=== PATIENT | female | born 2000 | race Caucasian/White ===

== ENCOUNTER 2022-04-24 13:56 | Inpatient (IN) ==
[2022-04-24] MEDS ORDERED: LACTATED RINGERS 500 ML IV PRN (14:18)
[2022-04-24] MEDS ORDERED: LACTATED RINGERS 1,000 ML IV PRN (14:18)
[2022-04-24] MEDS ORDERED: CARBOPROST TROMETHAMINE 250 MCG/ML AMP IM PRN (14:18)
[2022-04-24] MEDS ORDERED: ONDANSETRON 4 MG/2 ML VIAL IV PRN (14:18)
[2022-04-24] MEDS ORDERED: METHYLERGONOVINE 0.2 MG/1 ML AMP IM PRN (14:18)
[2022-04-24] MEDS ORDERED: miSOPROStoL 200 MCG TABLET RECTAL PRN (14:18)
[2022-04-24] MEDS ORDERED: OXYTOCIN/LR 20 UNIT/1,000 ML BAG IV ONE ×2 (14:18→22:19)
[2022-04-24] MEDS ORDERED: TRANEXAMIC ACID 1,000 MG in SODIUM CHLORIDE 0.9% 100 ML IV PRN (14:18)
[2022-04-24 14:36] LABS: Basophils % 0.2 % (0.0-0.8); Eosinophils # 0.6 10*3/uL (0.0-0.87); Eosinophils % 4.6 % (0.00-10.9); Hematocrit 29.3 VOL% (35.7-47.0); Hemoglobin 9.5 GM/DL (12.0-16.0); Immature Granulocytes % 1.1 %; Immature Granulocytes Absolute 0.14 #; Lymphocytes # 1.7 10*3/uL (1.4-4.0); Lymphocytes % 13.2 % (21.3-54.2); Mean Corpuscular HGB Conc 32.4 GM/DL (32-36); Mean Corpuscular Volume 77.7 FL (87-102); Mean Platelet Volume 11.2 FL (9.6-12.0); Monocytes # 0.8 10*3/uL (0.11-0.8); Monocytes % 6.5 % (1.7-12.7); Neutrophils % 74.4 % (38.7-73.9); Platelet Count 276 T/CUMM (130-400); Red Blood Count 3.77 MC/CUMM (3.8-5.5); Red Cell Distribution Width 13.8 % (9.3-17.3); White Blood Count 12.9 T/CUMM (4-12)
[2022-04-24 14:59] LABS: Albumin 2.3 G/DL (3.4-5.0); Bilirubin,Total 0.4 MG/DL (0.20-1.00); Calcium 9.1 MG/DL (8.5-10.1); Osmolality,Calculated 271.8 MOS/KG (273-304); Potassium 3.4 MMOL/L (3.5-5.1); Total Protein 6.3 G/DL (6.4-8.2)
[2022-04-24] MEDS: OXYTOCIN/LR 20 UNIT/1,000 ML BAG IV SCH (22:22)
[2022-04-25] MEDS ORDERED: BUTORPHANOL 2 MG/ML VIAL IV PRN (00:07)
[2022-04-25] MEDS ORDERED: BUTORPHANOL 1 MG/ML VIAL IV PRN (00:07)
[2022-04-25] MEDS ORDERED: LACTATED RINGERS 250 ML IV PRN (02:28)
[2022-04-25] MEDS ORDERED: diphenhydrAMINE 50 MG/1 ML VIAL IV PRN ×2 (02:28)
[2022-04-25] MEDS ORDERED: ePHEDrine 50 MG/ML VIAL IV PRN (02:28)
[2022-04-25] MEDS ORDERED: ONDANSETRON 4 MG/2 ML VIAL IV ONE (02:28)
[2022-04-25] MEDS ORDERED: PROMETHAZINE 25 MG/1 ML VIAL IM ONE (02:28)
[2022-04-25] MEDS ORDERED: hydrOXYzine HCL 25 MG/1 ML VIAL IM PRN (02:28)
[2022-04-25] MEDS ORDERED: NALOXONE 0.4 MG/ML VIAL IV PRN (02:28)
[2022-04-25] MEDS ORDERED: LACTATED RINGERS 1,000 ML IV SCH (02:30)
[2022-04-25] MEDS ORDERED: fentaNYL 2 MCG/ROPIV 0.2% EPID 100 ML EPIDURAL SCH (02:30)
[2022-04-25] MEDS ORDERED: fentaNYL 100 MCG/2 ML VIAL ONE (03:08)
[2022-04-25] MEDS ORDERED: ACETAMINOPHEN 500 MG TABLET PO PRN (07:14)
[2022-04-25 07:51] LABS: Cord Arterial Blood HCO3 22.4 MMOL/L
[2022-04-25 07:54] LABS: Cord Venous Blood HCO3 24.3 MMOL/L; Cord Venous Blood PCO2 42.8 MMHG; Cord Venous Blood PO2 31.4
[2022-04-25] MEDS ORDERED: oxyCODONE/ACETAMINOPHEN 5-325 MG TABLET PO PRN (14:54)
[2022-04-25] MEDS: IBUPROFEN 800 MG TABLET PO PRN (15:09)
[2022-04-25] MEDS: OXYTOCIN/LR 20 UNIT/1,000 ML BAG IV SCH (15:10)
[2022-04-25] MEDS: DOCUSATE SODIUM 100 MG CAPSULE PO SCH (20:32)
[2022-04-25] MEDS: POTASSIUM CHLORIDE 20 MEQ TABLET PO PRN ×2 (20:33→22:38)
[2022-04-26] MEDS: POTASSIUM CHLORIDE 20 MEQ TABLET PO PRN (00:49)
[2022-04-26 06:39] LABS: Basophils % 0.3 % (0.0-0.8); Eosinophils # 0.6 10*3/uL (0.0-0.87); Eosinophils % 3.9 % (0.00-10.9); Hematocrit 23.7 VOL% (35.7-47.0); Immature Granulocytes % 1.5 %; Immature Granulocytes Absolute 0.22 #; Lymphocytes # 3.3 10*3/uL (1.4-4.0); Lymphocytes % 21.9 % (21.3-54.2); Mean Corpuscular HGB Conc 31.2 GM/DL (32-36); Mean Corpuscular Volume 79.5 FL (87-102); Mean Platelet Volume 11.3 FL (9.6-12.0); Monocytes # 0.8 10*3/uL (0.11-0.8); Neutrophils % 67.4 % (38.7-73.9); Platelet Count 233 T/CUMM (130-400); Red Cell Distribution Width 13.8 % (9.3-17.3)
[2022-04-26 06:40] LABS: Hemoglobin 7.4 GM/DL (12.0-16.0); Red Blood Count 2.98 MC/CUMM (3.8-5.5)
[2022-04-26] MEDS: FERROUS SULFATE 325 MG TABLET PO SCH (08:58)
[2022-04-26] MEDS: DOCUSATE SODIUM 100 MG CAPSULE PO SCH ×2 (08:58→20:23)
[2022-04-26] MEDS: IBUPROFEN 800 MG TABLET PO PRN (18:43)
[2022-04-27] MEDS: FERROUS SULFATE 325 MG TABLET PO SCH ×2 (04:31→10:38)
[2022-04-27] MEDS: DOCUSATE SODIUM 100 MG CAPSULE PO SCH (10:38)
[2022-04-27 12:37] VITALS: BP 111/63
== END 2022-04-27 14:25 | disposition home or self-care (01) | DRG 807 ==
LOC: N.LD 13:56 → N.OB 04-25 10:40
PROVIDERS: ADMIT Obstetrics & Gynecology; ATTEND Obstetrics & Gynecology